=== PATIENT | female | born 1940 ===

== ENCOUNTER 2017-10-12 12:05 | Emergency (ER) | payer OTHER ==
--- NOTE | 2017-10-12 12:23 | UC ---
Lower Extremity/Ankle HPI - HPI Summary HPI Summary: Pt is a 77 y/o F presents to with LLE pain s/p falling yesterday. She notes the pain is localized around the L-knee. Pain is rated a 5/10 at its worse. Alleviating factors: Ice (swelling reduced). Allergies: Codeine, Penicillin ( Nausea) - History of Current Complaint Stated Complaint: L LEG INJURY Time Seen by Provider: 10/12/17 12:19 Hx Obtained From: Patient Onset/Duration: Sudden Onset, Lasting Days, Still Present Severity Currently: Moderate Pain Intensity: 5 Pain Scale Used: 0-10 Numeric Alleviating Factor(s): Ice - Allergies/Home Medications Allergies/Adverse Reactions: Allergies Allergy/AdvReac Type Severity Reaction Status Date / Time codeine Allergy Severe Nausea Verified 10/12/17 12:31 Penicillins Allergy Severe Nausea Verified 10/12/17 12:31 Home Medications: Home Medications Aspirin EC TAB* [Ecotrin EC Low Dose 81 MG*] 81 mg PO DAILY 10/12/17 [History Confirmed 10/12/17] Bupropion XL* [Wellbutrin XL *] 450 mg PO DAILY 10/12/17 [History Confirmed ] Sertraline* [Zoloft*] 25 mg PO DAILY 10/12/17 [History Confirmed 10/12/17] PMH/Surg Hx/FS Hx/Imm Hx Other Endocrine History: Neg: DM Other Cardiovascular History: Neg: CAD, HTN - Family History Known Family History: Negative: Cardiac Disease, Hypertension, Diabetes - Social History 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[place], Retired Lives: Alone Review of Systems Constitutional: Negative - fever Musculoskeletal: Other: - L knee swelling All Other Systems Reviewed And Are Negative: Yes Physical Exam - Summary Physical Exam Summary: General: well-appearing, no pain distress Skin: warm, color reflects adequate perfusion, dry, no skin break Head: normal Eyes: EOMI, LINDA ENT: normal Neck: supple, nontender Respiratory: CTA, breath sounds present Cardiovascular: RRR Abdomen: soft, nontender Bowel: present Musculoskeletal: normal, strength/ROM intact, TTP anterior L knee, ecchymosis, negative lachmans sign, negative mcmurrays sign. Neurological: sensory/motor intact, A&O x3 Psychological: affect/mood appropriate Triage Information Reviewed: Yes Vital Signs Reviewed: Yes Diagnostics - Radiology Knee XR Xray Interpretation: Positive (See Comments) - IMPRESSION: PATELLAR FRACTURE. JOINT EFFUSION. Radiology Interpretation Completed By: Radiologist - Report has been reviewed by provider. Lower Extremity Course/Dx - Course Course Of Treatment: DISCUSSED RESULTS WITH THE PATIENT. SHE IS FROM [facility] AND WILL F/U WITH HER ORTHOPEDIST. KNEE IMMOBILIZER PLACED BY NURSING. - Differential Dx/Diagnosis Provider Diagnoses: LEFT PATELLA FRACTURE Discharge - Sign-Out/Discharge Documenting (check all that apply): Patient Departure - Discharge Plan Condition: Stable Disposition: HOME Patient Education Materials: Patellar Fracture (ED) Referrals: [facility] [Outside] [facility] [Outside] Ky De La Cruz MD [Medical Doctor] - Additional Instructions: FOLLOW UP WITH YOUR ORTHOPEDIST. GET RECHECKED FOR ANY WORSENING OF YOUR CONDITION OR QUESTIONS OR CONCERNS. - Billing Disposition and Condition Condition: STABLE Disposition: Home
[2017-10-12 12:31] VITALS: BP 155/69
--- NOTE | 2017-10-12 13:06 | RAD ---
INDICATION: Left knee injury COMPARISON: None TECHNIQUE: AP, lateral, tunnel, and sunrise views were obtained. FINDINGS: There is a nondisplaced patellar fracture with comminution. No other fractures are evident. There is underlying osteopenia. The knee articulates normally. There is a large joint effusion. There is prepatellar swelling. IMPRESSION: PATELLAR FRACTURE. JOINT EFFUSION.
== END 2017-10-12 13:51 | disposition home or self-care (01) ==
LOC: UCEAST 12:05
DX: S82.002A Unspecified fracture of left patella, initial encounter for closed fracture (principal)
CPT/HCPCS: 99202; G0463